=== PATIENT | female | born 1960 | race Caucasian/White ===

== ENCOUNTER 2024-06-29 05:44 | Day surgery (SDC) | payer MEDICARE, OTHER ==
[2024-06-21 13:49] LABS: BILIRUBIN,URINE NEGATIVE (Neg); CLARITY,URINE SLIGHTLY CLOUDY (Clear); COLOR,URINE YELLOW (Yellow); GLUCOSE, URINE NEGATIVE (Neg); KETONES,URINE NEGATIVE (Neg); LEUKOCYTE ESTERASE ,URINE NEGATIVE (Neg); NITRITES, URINE NEGATIVE (Neg); OCCULT BLOOD,URINE TRACE-INTACT (Neg); PROTEIN,URINE NEGATIVE (Neg); UROBILINOGEN,URINE 0.2 E.U/dL (0.2-1.0)
[2024-06-21 13:52] LABS: BASOPHILS % (AUTO) 0.3 % (0-1); EOSINOPHILS # (AUTO) 0.1 X10'3 (0-0.9); EOSINOPHILS % (AUTO) 1.1 % (0-6); LYMPHOCYTES # (AUTO) 1.7 X10'3 (1.1-4.8); LYMPHOCYTES % (AUTO) 28.8 % (21-51); MEAN CORPUSCULAR HEMOGLOBIN 30.6 PG (27.0-31.0); MEAN CORPUSCULAR HGB CONC 33.4 g/dL (33.0-36.5); MEAN CORPUSCULAR VOLUME 91.5 FL (78-98); MONOCYTES # (AUTO) 0.5 X10'3 (0-0.9); MONOCYTES % (AUTO) 8.3 % (2-12); NEUTROPHILS # (AUTO) 3.7 X10'3 (1.8-7.7); NEUTROPHILS % (AUTO) 61.5 % (42-75); PRE OP HEMATOCRIT 41.1 % (35.0-45.0); PRE OP HEMOGLOBIN 13.7 g/dL (12.0-16.0); PRE OP PLATELET COUNT 236 X10'3 (140-440); RED BLOOD COUNT 4.49 X10'6 (4.20-5.60)
[2024-06-21 13:54] LABS: UA COLLECTION TYPE CLN CATCH MIDSTREAM
[2024-06-21 13:58] LABS: SQUAMOUS EPITHELIAL CELL,UR FEW /LPF (FEW); WBC,URINE 0-4 /HPF (0-4)
[2024-06-21 13:59] LABS: BACTERIA,URINE FEW /HPF (Neg)
[2024-06-21 14:07] LABS: ALBUMIN 3.6 G/DL (3.4-5.0); ALKALINE PHOSPHATASE 104 IU/L (46-116); BLOOD UREA NITROGEN 19 MG/DL (7-18); BUN/CREATININE RATIO 25.7 (10.0-20.0); CALCIUM 8.7 MG/DL (8.5-10.1); CHLORIDE 107 MMOL/L (99-107); CREATININE 0.74 MG/DL (0.40-0.90); PRE OP ALT 14 U/L (30-65); PRE OP ANION GAP 8 (8-16); PRE OP AST 27 U/L (10-37); PRE OP BILIRUB, TOTAL 0.7 MG/DL (0.0-1.0); PRE OP GLUCOSE 108 MG/DL (70-104); PRE OP POTASSIUM 3.4 MMOL/L (3.4-5.1); PRE OP SODIUM 142 MMOL/L (135-145); TOTAL CARBON DIOXIDE 26.7 MMOL/L (24-32); TOTAL PROTEIN 7.1 G/DL (6.4-8.2); eGFR 79 ML/MIN
[~2024-06-29] VITALS: Ht 157.5 cm; Wt 68.1 kg
[2024-06-29] VITALS (32 sets, daily range): BP systolic 102–149; BP diastolic 60–88; PULSE 69–98; RESP 13–22; TEMP 97.4–98.6; O2SAT 92–100
[2024-06-29] MEDS: ceFOXitin 2GM-NS 100mL ADDvant 100 ML IV ONE (05:30)
[~2024-06-29 05:44] MED LIST: IBUP-1985 PO; MAGNESIUM PO; MULT-1085 PO; PRE PO; TUMERIC PO; VITA-290 PO; VITAMIN C PO; VITAMIN D PO; [UNRECOGNIZED DRUG - OTHER] PO
[2024-06-29] MEDS: famotidine 20mg tablet PO ONE (06:55)
[2024-06-29] MEDS: ringers solution, lacted 1,000 ML IV SCH ×3 (06:55→15:43)
[2024-06-29] MEDS: clindamycin phosphate 40gm vag cream ONE (06:57)
[2024-06-29] MEDS: BUPIVAcaine 2.5mg/ml inj 50ml vial (contains preservative) ONE ×3 (06:57→07:41)
[2024-06-29] MEDS: vasoPRESSIN 20 units/ml inj. ONE (06:58)
[2024-06-29] MEDS: neomy sulf/polymyxin B sulf. GU irrigation 1ml amp IR ONE (06:58)
[2024-06-29] MEDS ORDERED: sevoflurane 250ml liquid IH ONE (07:22)
[2024-06-29] MEDS ORDERED: midazolam 1 mg/ML 2ml injection ONE (07:32)
[2024-06-29] MEDS ORDERED: fentaNYL /PF 50mcg/ml 5ml ampule ONE (07:32)
[2024-06-29] MEDS ORDERED: propofol inj 20 ML IV ONE (07:34)
[2024-06-29] MEDS ORDERED: LIDOcaine 2% (20mg/ml) 5ml vial ONE (07:34)
[2024-06-29] MEDS ORDERED: ondansetron/PF 4mg/2ml inj ONE (07:48)
[2024-06-29] MEDS ORDERED: dexamethasone sod phosphate 4mg/ml inj. ONE (07:48)
[2024-06-29] MEDS ORDERED: acetaminophen 1,000mg/100ml IV 100 ML IV ONE (07:55)
[2024-06-29] MEDS ORDERED: proCHLORperazine 10 MG/2 ml inj IV PRN (08:50)
[2024-06-29] MEDS ORDERED: morphine 2 MG/ML inj. syringe IV PRN (08:50)
[2024-06-29] MEDS ORDERED: enalaprilat dihydrate 2.5mg/2ml vial IV PRN (08:50)
[2024-06-29] MEDS ORDERED: meperidine/PF 25mg/ml syringe IV PRN ×2 (08:50)
[2024-06-29] MEDS ORDERED: labetalol 20mg/4ml (5mg/ml) syringe IV PRN (08:50)
[2024-06-29] MEDS ORDERED: morphine 4 MG/ML inj SYRINge IV PRN (08:50)
[2024-06-29] MEDS ORDERED: ondansetron/PF 4mg/2ml inj IV PRN (08:50)
[2024-06-29] MEDS ORDERED: meperidine/PF 25mg/ml syringe ONE (11:41)
[2024-06-29] MEDS ORDERED: diphenhydrAMINE 50 mg/ml inj IV PRN (12:40)
[2024-06-29] MEDS ORDERED: normal saline 500ml IV soln 500 ML IV PRN (12:40)
[2024-06-29] MEDS ORDERED: metoclopramide 5 mg/ml inj IV PRN (12:40)
[2024-06-29] MEDS ORDERED: magnesium hydroxide 30ml (MOM) UD suspension PO PRN (12:40)
[2024-06-29] MEDS ORDERED: temazepam 15mg capsule PO PRN (12:40)
[2024-06-29] MEDS ORDERED: iohexol 350MG/ML 100ml bottle IV ONE (13:03)
[2024-06-29] MEDS: ketorolac trometh 30MG/ML vial 30 MG/ML VIAL IM SCH (15:47)
[2024-06-29] MEDS: meperidine/PF 25mg/ml syringe IV PRN (15:49)
[2024-06-29] MEDS: LORazepam 2 mg/ml vial IV PRN (17:58)
[2024-06-29] MEDS ORDERED: ibuprofen 200mg tablet PO PRN (18:20)
[2024-06-29] MEDS: HYDROmorphone 1 mg/ml syringe IV PRN (20:08)
[2024-06-29] MEDS: docusate sod 100mg capsule PO SCH (20:12)
[2024-06-30 02:00] VITALS: BP 112/53; PULSE 84; RESP 14; TEMP 98.7; O2SAT 96
[2024-06-30 04:58] LABS: BASOPHILS % (AUTO) 0.2 % (0-1); EOSINOPHILS % (AUTO) 0.1 % (0-6); HEMATOCRIT 33.6 % (35.0-45.0); HEMOGLOBIN 11.4 g/dl (12.0-16.0); LYMPHOCYTES # (AUTO) 1.5 X10'3 (1.1-4.8); LYMPHOCYTES % (AUTO) 16.8 % (21-51); MEAN CORPUSCULAR HEMOGLOBIN 31.2 PG (27.0-31.0); MEAN CORPUSCULAR VOLUME 91.8 FL (78-98); MEAN PLATELET VOLUME 8.3 FL (7.4-10.4); MONOCYTES # (AUTO) 0.8 X10'3 (0-0.9); MONOCYTES % (AUTO) 9.2 % (2-12); NEUTROPHILS # (AUTO) 6.8 X10'3 (1.8-7.7); NEUTROPHILS % (AUTO) 73.7 % (42-75); PLATELET COUNT 211 X10'3 (140-440); RED BLOOD COUNT 3.66 X10'6 (4.20-5.60); RED CELL DISTRIBUTION WIDTH 13.1 % (11.5-14.5); WHITE BLOOD COUNT 9.2 X10'3 (4.5-11.0)
[2024-06-30 05:10] LABS: ALBUMIN 2.8 G/DL (3.4-5.0); ANION GAP 6 (8-16); BLOOD UREA NITROGEN 10 MG/DL (7-18); BUN/CREATININE RATIO 15.4 (10.0-20.0); CALCIUM 7.8 MG/DL (8.5-10.1); CHLORIDE 106 MMOL/L (99-107); CREATININE 0.65 MG/DL (0.40-0.90); GLUCOSE 118 MG/DL (70-104); POTASSIUM 3.5 MMOL/L (3.5-5.1); SODIUM 138 MMOL/L (135-145); TOTAL CARBON DIOXIDE 26.1 MMOL/L (24-32); eCRCL 67 ML/MIN; eGFR > 90 ML/MIN
[2024-06-30 06:00] VITALS: BP 107/63; PULSE 85; RESP 18; TEMP 98.6; O2SAT 91
[2024-06-30] MEDS: multivitamins, therapeutics tablet PO SCH (07:31)
[2024-06-30] MEDS: magnesium oxide 400mg tablet PO SCH (07:31)
[2024-06-30] MEDS: ascorbic acid 500mg tablet PO SCH (07:31)
[2024-06-30] MEDS: lactobacillus rhamnosus 10,000 MMU CELLS/CAPSULE PO SCH (08:00)
[2024-06-30] MEDS: vitamin B comp w/Vit. C tab 1 TAB TABLET PO SCH (10:09)
[2024-06-30] MEDS: cholecalciferol (vitamin D3) 1,000 unit (25mcg) tablet PO SCH (10:10)
[2024-06-30 11:43] VITALS: RESP 16
[2024-06-30] MEDS: HYDROcodone/acetaminophen 10/325mg tab PO PRN (11:43)
[2024-06-30] MEDS: ondansetron/PF 4mg/2ml inj IV PRN (12:22)
== END 2024-06-30 16:43 | disposition home or self-care (01) ==
LOC: PAS 05:44 → SUR 3N 12:36 → PAS 06-30 16:43
PROVIDERS: ATTEND Obstetrics & Gynecology Obstetrics
DX: N81.89 Other female genital prolapse (principal); D25.9 Leiomyoma of uterus, unspecified; N72 Inflammatory disease of cervix uteri; N83.201 Unspecified ovarian cyst, right side; N83.202 Unspecified ovarian cyst, left side; M19.90 Unspecified osteoarthritis, unspecified site; Z87.891 Personal history of nicotine dependence; Z79.899 Other long term (current) drug therapy; Z98.890 Other specified postprocedural states
CPT/HCPCS: 36415; 57260; 58552; 71046; 74178; 80048; 80053; 81001; 82948; 85025; 86885; 86900; 86901; 87081; 93005; A4314; A4615; A4618; A7000; J0131; J0694; J1100; J1171; J1885; J2001; J2060; J2175; J2250; J2405; J2704; J3010; J3490; J7030; J7120; Q9967; Z7506; Z7508; Z7512; Z7610; 88305; 88307; G0378